=== PATIENT | female | born 1980 ===

== ENCOUNTER 2017-04-11 17:02 | Emergency (ER) | payer MEDICAID ==
[2017-04-11 17:02] VITALS: BMI 31.9
[2017-04-11 17:50] VITALS: RESP 18; TEMP 99; O2SAT 98
--- NOTE | 2017-04-11 18:07 | ED PDOC ---
Arrival/HPI - General Historian: Patient, Spouse - History of Present Illness Time/Duration: Other (see hpi) Quality: Aching Context: Home - General Chief Complaint: Lower Extremity Problem/Injury Time Seen by Provider: 04/11/17 17:49 - History of Present Illness Narrative History of Present Illness (Text): 04/11/17 18:04 This 36 yo female presents to this ED c/o intermittent left ankle pain, and swelling x 2 week. Patient denies trauma. (Denise Nick) Past Medical History - Provider Review Nursing Documentation Reviewed: Yes - Infectious Disease Hx of Infectious Diseases: None - Cardiac Hx Cardiac Disorders: No - Genitourinary/Gynecological Other/Comment: IUD implant - Psychiatric Hx Substance Use: No - Anesthesia Hx Anesthesia: No Hx Anesthesia Reactions: No Hx Malignant Hyperthermia: No Family/Social History - Physician Review Nursing Documentation Reviewed: Yes Family/Social History: Other (non-contributory) Smoking Status: Never Smoked Hx Alcohol Use: No Hx Substance Use: No Allergies/Home Meds Allergies/Adverse Reactions: Allergies No Known Allergies Allergy (Verified 04/11/17 17:46) Review of Systems - Review of Systems Constitutional: Normal. absent: Fatigue, Weight Change, Fevers Eyes: Normal ENT: Normal Respiratory: Normal Cardiovascular: Normal Gastrointestinal: Normal Genitourinary Female: Normal Musculoskeletal: Other (left ankle pain and swelling) Skin: Normal Neurological: Normal Endocrine: Normal Hemo/Lymphatic: Normal Psychiatric: Normal Physical Exam Temperature: Afebrile Blood Pressure: Normal Pulse: Regular Respiratory Rate: Normal Appearance: Positive for: Well-Appearing, Non-Toxic, Comfortable Pain Distress: None Mental Status: Positive for: Alert and Oriented X 3 - Systems Exam Head: Present: Atraumatic, Normocephalic Pupils: Present: PERRL Extroacular Muscles: Present: EOMI Conjunctiva: Present: Normal Mouth: Present: Moist Mucous Membranes Neck: Present: Normal Range of Motion Upper Extremity: Present: Normal Inspection, Normal ROM Lower Extremity: Present: NORMAL PULSES, Normal ROM, Tenderness, Swelling, Neurovascularly Intact, Capillary Refill < 2 s, Other (Mild left lateral malleoulus tenderness, and swelling. No erythema, or ecchymosis. no warmth to palpation. Brooks test was negative). No: Edema, CALF TENDERNESS, Cyanosis, Traci's Sign, Erythema, Deformity, Temperature Abnormalties Neurological: Present: GCS=15, CN II-XII Intact, Speech Normal, Motor Func Grossly Intact, Normal Sensory Function, Normal Cerebellar Funct Skin: Present: Warm, Dry, Normal Color. No: Rashes Psychiatric: Present: Alert, Oriented x 3 Medical Decision Making Re-evaluation Time: 19:04 Reassessment Condition: Re-examined, Improved - Lab Interpretations I have reviewed the lab results: Yes Interpretation: No clinic. lab abnormalty ED Course and Treatment: 04/11/17 19:03 Patient is resting comfortably, and is in no acute distress. Patient was instructed to follow up with PMD in 1-2 days for further evaluation. Patient came c/o left ankle swelling. Ankle is not erythematous, or warmth on palpation. Patient denies trauma. Brooks test was negative. Patient admits similar symptoms in the past, and she has been on her feet for long hours. Patient denies leg swelling, calf pain, blood disorder, tobacco use, hormonal replacement therapy, recent travel, sick contact, skin rash, recent procedure/ surgery, sob, cp, or dizziness. Patient does not DVT risk factors (Nick,Nahim P) No calf pain. Pain and swelling localized to malleolus of ankle. No fever. No streaking. Non smoker. No prolonged immobilization or long travel, no prior hx of DVT or PE. No complaints of chest pain or shortness of breath. (Emily Wright) - Lab Interpretations Lab Results: Lab Results 04/11/17 18:30: Uric Acid 4.6 - RAD Interpretation Narrative RAD Interpretations (Text): 04/11/17 19:10 Ankle x-rays: No fx or dislocation. Soft tissue is normal (Nick,Nahim P) Radiology Orders: 04/11/17 18:05 ANKLE LEFT 3 VIEWS ROUTINE [RAD] Stat - Medication Orders Current Medication Orders: Discontinued Medications Ketorolac Tromethamine (Toradol) 30 mg IM STAT STA Stop: 04/11/17 18:06 Last Admin: 04/11/17 18:40 Dose: 30 mg Disposition/Present on Arrival - Present on Arrival Any Indicators Present on Arrival: No History of DVT/PE: No History of Uncontrolled Diabetes: No Urinary Catheter: No History of Decub. Ulcer: No History Surgical Site Infection Following: None - Disposition Have Diagnosis and Disposition been Completed?: Yes Disposition Time: 19:10 Patient Plan: Discharge - Disposition Diagnosis: Ankle pain Disposition: HOME/ ROUTINE Condition: GOOD Discharge Instructions (ExitCare): Ankle Sprain (ED) Additional Instructions: Call private doctor for revaluation in 1-2 days. Take medication as instructed. Keep ankle elevated, rest, laura bandage, crutches for at least 5 days. return to emergency if symptoms worsen. or if you leg becomes swelling , calf pain Prescriptions: Famotidine [Pepcid] 40 mg PO DAILY #10 tablet Naproxen 500 mg PO BID PRN #14 tab PRN Reason: Pain, Severe (8-10) Referrals: [facility], [Non-Staff] - Follow up with primary Forms: [employer] (K[place]akh)
[2017-04-11 19:45] VITALS: BP 113/70; PULSE 71
--- NOTE | 2017-04-12 08:38 | RAD ---
PROCEDURE: Left Ankle Radiographs. HISTORY: Pain COMPARISON: None FINDINGS: BONES: Normal. No fracture. JOINTS: Normal. No osteoarthritis. Ankle mortise maintained. Talar dome intact SOFT TISSUES: There is mild periarticular soft tissue swelling. OTHER FINDINGS: None. IMPRESSION: No acute fracture or dislocation.
== END 2017-04-11 19:44 | disposition home or self-care (01) ==
LOC: ED 17:02
DX: M25.572 Pain in left ankle and joints of left foot (principal)
CPT/HCPCS: 73610; 81025; 84550; 96372; 99284; J1885